=== PATIENT | male | born 1935 | race Caucasian/White ===

== ENCOUNTER 2022-05-24 06:25 | Day surgery (SDC) | payer MEDICARE, BC ==
[~2022-05-24 06:25] MED LIST: Acetaminophen 1,000 MG in Premix Bag 1 BAG IV SCH; Lactated Ringers 1,000 ML IV SCH; Pregabalin 75 MG Cap PO SCH; ceFAZolin 2 GM in Premix Bag 1 BAG IV SCH
[2022-05-24] MEDS ORDERED: Ropivacaine 0.5% 5 MG/ML 30 ML SDV ONE (07:18)
[2022-05-24] MEDS ORDERED: Lidocaine 2% 5 ML SDV ONE (07:22)
[2022-05-24] MEDS ORDERED: Dexamethasone 4 MG/ML 5 ML MDV ONE (07:22)
[2022-05-24] MEDS ORDERED: Ondansetron 4 MG/2 ML SDV ONE (07:22)
[2022-05-24] MEDS ORDERED: Propofol 200 MG/20 ML SDV ONE (07:22)
[2022-05-24] MEDS ORDERED: Sugammadex Sodium 200 MG/2 ML VIAL ONE (07:22)
[2022-05-24] MEDS ORDERED: Rocuronium Bromide 50 MG/5 ML Syringe ONE (07:22)
[2022-05-24] MEDS ORDERED: fentaNYL 100 MCG/2 ML SDV ONE (07:22)
[2022-05-24] MEDS ORDERED: Bupivacaine 0.5% 30 ML SDV ONE (07:23)
[2022-05-24] MEDS ORDERED: Lidocaine 1% 5 ML VIAL ONE (07:43)
[2022-05-24] MEDS ORDERED: Naloxone 0.4 MG/ML SDV IVPUSH PRN (07:44)
[2022-05-24] MEDS ORDERED: Metoclopramide 10 MG/2 ML SDV IVPUSH PRN (07:44)
[2022-05-24] MEDS ORDERED: Albuterol 0.083% 2.5 MG/3 ML Neb Soln NEB PRN (07:44)
[2022-05-24] MEDS ORDERED: fentaNYL 50 MCG/ML SDV IVPUSH PRN (07:44)
[2022-05-24] MEDS ORDERED: Morphine 2 MG/ML SYRINGE IVPUSH PRN (07:44)
[2022-05-24] MEDS ORDERED: HYDROmorphone 1 MG/ML Syringe IVPUSH PRN (07:44)
[2022-05-24] MEDS ORDERED: Ondansetron 4 MG/2 ML SDV IVPUSH PRN (07:44)
[2022-05-24] MEDS ORDERED: Phenylephrine HCl In 0.9% NaCl 1 MG/10 ML Vial ONE (08:44)
== END 2022-05-24 11:10 | disposition home or self-care (01) ==
LOC: MW.SDS 06:25
PROVIDERS: ATTEND Surgery
DX: K42.9 Umbilical hernia without obstruction or gangrene (principal); I50.9 Heart failure, unspecified; I13.0 Hypertensive heart and chronic kidney disease with heart failure and stage 1 through stage 4 chronic kidney disease, or unspecified chronic kidney disease; N18.9 Chronic kidney disease, unspecified; J44.9 Chronic obstructive pulmonary disease, unspecified; K21.9 Gastro-esophageal reflux disease without esophagitis; N40.0 Benign prostatic hyperplasia without lower urinary tract symptoms; E03.9 Hypothyroidism, unspecified; E78.00 Pure hypercholesterolemia, unspecified; I25.2 Old myocardial infarction; Z98.890 Other specified postprocedural states; Z88.8 Allergy status to other drugs, medicaments and biological substances; Z87.891 Personal history of nicotine dependence; Z79.890 Hormone replacement therapy; Z79.899 Other long term (current) drug therapy
CPT/HCPCS: 49580; A9270; C1781; J0131; J0690; J1100; J2704; J2795; J3010; J3490; J7120; 00750; 64488; 99100; J2405